=== PATIENT | female | born 2000 | race Caucasian/White ===

== ENCOUNTER 2020-07-20 19:13 | Emergency (ER) | payer OTHER ==
[~2020-07-20] VITALS: Ht 152.4 cm; Wt 54.9 kg
== END 2020-07-20 21:33 | disposition home or self-care (01) ==
LOC: ER 19:13
DX: G44.89 Other headache syndrome (principal); Z03.818 Encounter for observation for suspected exposure to other biological agents ruled out

== ENCOUNTER 2020-09-23 14:44 | Emergency (ER) | payer OTHER ==
[~2020-09-23] VITALS: Ht 152.4 cm; Wt 61.2 kg
[2020-09-23] MEDS ORDERED: ZITHROMAX500 MG PO (19:24)
== END 2020-09-23 19:49 | disposition home or self-care (01) ==
LOC: ER 14:44 → EMR PED 15:06 → ER 15:06 → EMR PED 19:49
DX: U07.1 COVID-19 (principal); B96.0 Mycoplasma pneumoniae [M. pneumoniae] as the cause of diseases classified elsewhere

== ENCOUNTER 2021-03-04 21:24 | Emergency (ER) | payer OTHER ==
[~2021-03-04] VITALS: Ht 152.4 cm; Wt 56.7 kg
[~2021-03-04 21:24] MED LIST: ZITHROMAX500 MG PO
[2021-03-05] MEDS ORDERED: LEVSIN/SL0.125 MG SL (01:36)
[2021-03-05] MEDS ORDERED: INTESTINEX680 M1 PO (01:36)
== END 2021-03-05 01:46 | disposition home or self-care (01) ==
LOC: ER 21:24 → EMR PED 21:47
DX: R19.7 Diarrhea, unspecified (principal); B96.0 Mycoplasma pneumoniae [M. pneumoniae] as the cause of diseases classified elsewhere; Z11.52 Encounter for screening for COVID-19

== ENCOUNTER 2021-03-06 11:00 | Inpatient (IN) | payer OTHER ==
[~2021-03-06 11:00] MED LIST changes: +INTESTINEX680 M1 PO; +LEVSIN/SL0.125 MG SL
--- NOTE | 2021-03-06 11:19 | NUR ---
PTE REFIERE DIARREA CON LORRAINE Y GLORIA DOLOR ABDOMINAL SE [place]ILEY S/V Y SE UBICA EN AREA DE PEDIATRIA
--- NOTE | 2021-03-06 12:37 | NUR ---
EVALUADA PTE. POR DRA. ODONNELL. SE ORIENTA SOBRE TRATAMIENTO Y MEDICAMENTO EL CUAL SE ADM. REG ORDEN MEDICA, MUESTRAS TOMADAS Y SE ENVIAN AL LABORATORIO. SE HACEN AREGLOS PARA SOOGRAMA Y SE LYLY PTE. EN CAMA CON BARRANDAS ELEVADAS ACOMPANADA DE FAMILIAR.
--- NOTE | 2021-03-06 13:33 | NUR ---
MUESTRAS TOMADAS Y SE ENVIAN AL LABORATI\ORIO Y SE ORIENTA A ESTAR NPO.
--- NOTE | 2021-03-06 15:01 | NUR ---
AL MOMENTO DE VIRAJ MEDICAMENTO PTE SE ENCUENTRA EN ESTUDIO
[2021-03-09] MEDS ORDERED: PEPCID20 MG PO (11:52)
[2021-03-09] MEDS ORDERED: PROBIOTIC1 EAC2 PO (11:53)
== END 2021-03-09 12:24 | disposition home or self-care (01) | DRG 641 ==
LOC: EMR PED 11:00 → SEC-K 22:27 → OB/GYN 03-07 00:03
PROVIDERS: ADMIT Pediatrics; ATTEND Pediatrics
PROC: BW40ZZZ Ultrasonography of Abdomen (ICD-10-PCS; principal; 2021-03-06)
PROC: BW2110Z Computerized Tomography (CT Scan) of Abdomen and Pelvis using Low Osmolar Contrast, Unenhanced and Enhanced (ICD-10-PCS; 2021-03-06)
PROC: BW4GZZZ Ultrasonography of Pelvic Region (ICD-10-PCS; 2021-03-06)
DX: E86.0 Dehydration (principal); K92.1 Melena; R19.7 Diarrhea, unspecified; Z20.822 Contact with and (suspected) exposure to COVID-19

== ENCOUNTER 2021-07-04 16:01 | Emergency (ER) | payer OTHER ==
[~2021-07-04] VITALS: Ht 152.4 cm; Wt 54.4 kg
[~2021-07-04 16:01] MED LIST changes: +PEPCID20 MG PO; +PROBIOTIC1 EAC2 PO
[2021-07-04] MEDS ORDERED: CIPRO500 MG PO (19:33)
== END 2021-07-05 | disposition home or self-care (01) ==
LOC: EMR PED 16:01
DX: N39.0 Urinary tract infection, site not specified (principal)

== ENCOUNTER 2022-03-23 20:54 | Emergency (ER) | payer OTHER ==
[~2022-03-23] VITALS: Ht 152.4 cm; Wt 49.9 kg
[~2022-03-23 20:54] MED LIST changes: +CIPRO500 MG PO
[2022-03-24] MEDS ORDERED: INTESTINEX680 M1 PO (02:57)
[2022-03-24] MEDS ORDERED: LEVSIN/SL0.125 MG SL (02:57)
== END 2022-03-24 03:04 ==
LOC: ER 20:54
DX: R19.7 Diarrhea, unspecified (principal); R10.84 Generalized abdominal pain; Z88.0 Allergy status to penicillin

== ENCOUNTER → 2022-11-09 | Emergency (ER) | payer OTHER ==
[~2022-11-09] VITALS: Ht 152.4 cm; Wt 45.4 kg
== END | disposition home or self-care (01) ==
LOC: ER 08:57
DX: N64.4 Mastodynia (principal); Z88.0 Allergy status to penicillin

== ENCOUNTER 2022-12-17 10:16 | Emergency (ER) | payer OTHER ==
[~2022-12-17] VITALS: Ht 152.4 cm; Wt 45.4 kg
== END 2022-12-17 13:20 | disposition home or self-care (01) ==
LOC: ER 10:16
DX: N39.0 Urinary tract infection, site not specified (principal); Z88.0 Allergy status to penicillin

== ENCOUNTER 2022-12-20 10:57 | Outpatient (CLI) | payer OTHER | END 2022-12-20 11:17 | disposition home or self-care (01) | LOC: SONOGRAMA 10:57 | PROVIDERS: ATTEND Surgery | DX: N60.11 Diffuse cystic mastopathy of right breast (principal); N60.12 Diffuse cystic mastopathy of left breast ==

== ENCOUNTER 2023-01-17 18:28 | Emergency (ER) | payer OTHER ==
[~2023-01-17] VITALS: Ht 162.6 cm; Wt 54.4 kg
== END 2023-01-17 22:00 | disposition home or self-care (01) ==
LOC: ER 18:28
DX: K51.90 Ulcerative colitis, unspecified, without complications (principal); Z88.0 Allergy status to penicillin

== ENCOUNTER → 2023-04-25 | Emergency (ER) | payer OTHER ==
[~2023-04-25] VITALS: Ht 152.4 cm; Wt 52.2 kg
[~2023-04-25] MED LIST changes: +PRENATAL + DHA1 EAC1
== END | disposition home or self-care (01) ==
LOC: ER 09:02
DX: O20.9 Hemorrhage in early pregnancy, unspecified (principal); Z3A.11 11 weeks gestation of pregnancy; Z88.0 Allergy status to penicillin

== ENCOUNTER 2023-05-05 19:07 | Emergency (ER) | payer OTHER ==
[~2023-05-05] VITALS: Ht 152.4 cm; Wt 52.2 kg
== END 2023-05-05 22:09 | disposition home or self-care (01) ==
LOC: ER 19:07
DX: O20.8 Other hemorrhage in early pregnancy (principal); Z3A.13 13 weeks gestation of pregnancy; R10.2 Pelvic and perineal pain; Z88.0 Allergy status to penicillin

== ENCOUNTER 2023-05-10 13:34 | Outpatient (CLI) | payer OTHER | END 2023-05-10 14:40 | disposition home or self-care (01) | LOC: PRENATAL 13:34 | PROVIDERS: ATTEND Obstetrics & Gynecology Maternal & Fetal Medicine | DX: O36.80X0 Pregnancy with inconclusive fetal viability, not applicable or unspecified (principal); O43.90 Unspecified placental disorder, unspecified trimester; Z3A.13 13 weeks gestation of pregnancy ==

== ENCOUNTER 2023-07-01 08:11 | Outpatient (CLI) | payer OTHER | END 2023-07-01 16:01 | disposition home or self-care (01) | LOC: PRENATAL 08:11 | PROVIDERS: ATTEND Obstetrics & Gynecology Maternal & Fetal Medicine | DX: O35.3XX0 Maternal care for (suspected) damage to fetus from viral disease in mother, not applicable or unspecified (principal); O44.00 Complete placenta previa NOS or without hemorrhage, unspecified trimester; Z3A.20 20 weeks gestation of pregnancy ==

== ENCOUNTER 2023-09-06 20:42 | Inpatient (IN) | payer OTHER ==
[~2023-09-06] VITALS: Ht 152.4 cm; Wt 64.4 kg
[2023-09-06 21:10] LABS: HEMATOCRIT 32.6 % (36.0-45.00); HEMOGLOBIN 10.9 g/dL (12.0-15.00); MEAN CELL VOLUME 91.1 fL (80.00-100.00); MEAN CORPUSCULAR HEMOGLOBIN 30.5 pg (27.00-32.0); MEAN CORPUSCULAR HGB CONC 33.5 g/dl (32.0-36.0); PH,URINE 7.5 (5.0-8.0); PLATELET COUNT 208 K/uL (150-450); RED BLOOD COUNT 3.58 M/uL (4.00-6.00); RED CELL DISTRIBUTION WIDTH 13.2 % (11.5-14.5); URINE APPEARANCE Clear; URINE BILIRRUBIN Negative (NEGATIVE); URINE BLOOD Negative; URINE COLOR Yellow; URINE GLUCOSE Negative (NEGATIVE); URINE LEUKOCYTE Small; URINE NITRATE Negative; URINE PROTEIN Negative (NEGATIVE); URINE UROBILINOGEN 0.2 E.U./dl
[2023-09-06 21:13] LABS: URINE BACTERIA 2396.2 uL (0.0-1933); URINE EPITHELIAL CELLS 52.7 uL (0.0-38.8); URINE WBC 80.8 uL (0.0-23.2)
[2023-09-06 21:29] LABS: INR 0.98; PARTIAL THROMBOPLASTIN TIME 26.2 SECONDS (22.0-34.0); PROTHROMBIN TIME 10.3 SECONDS (9.0-11.5)
[2023-09-06 21:30] LABS: URINE RBC 0.4 uL (0.0-20.8)
[2023-09-06 21:31] LABS: URINE MUCUS SCANT
[2023-09-06 21:32] LABS: URINE CRYSTALS FEW /HPF
[2023-09-06 21:34] LABS: ALBUMIN 2.7 gm/dL (3.4-5.0); BILIRUBIN TOTAL 0.24 mg/dL (0.3-1.2); CALCIUM 8.6 mg/dL (8.5-10.1); CREATININE SERUM 0.44 mg/dL (0.55-1.02); GFR 178.81; GLOBULINA 3.9 G/DL (2.4-3.5); POTASSIUM 4.38 mEq/L (3.5-5.1); TOTAL PROTEIN 6.6 gm/dL (6.4-8.2)
[2023-09-07] MEDS ORDERED: RHOGAM ULTR1500 UNIT IM (08:56)
== END 2023-09-08 14:22 | disposition home or self-care (01) | DRG 833 ==
LOC: LDR 20:42 → OB/GYN 09-07 15:07
PROVIDERS: ADMIT Student in an Organized Health Care Education/Training Program; ATTEND Student in an Organized Health Care Education/Training Program
PROC: 4A1HXCZ Monitoring of Products of Conception, Cardiac Rate, External Approach (ICD-10-PCS; principal; 2023-09-06)
PROC: BY4FZZZ Ultrasonography of Third Trimester, Single Fetus (ICD-10-PCS; 2023-09-07)
DX: O47.03 False labor before 37 completed weeks of gestation, third trimester (principal); O26.843 Uterine size-date discrepancy, third trimester; O36.8130 Decreased fetal movements, third trimester, not applicable or unspecified; Z3A.30 30 weeks gestation of pregnancy; Z20.822 Contact with and (suspected) exposure to COVID-19

== ENCOUNTER 2023-09-22 14:08 | Outpatient (CLI) | payer OTHER ==
[~2023-09-22 14:08] MED LIST changes: +RHOGAM ULTR1500 UNIT IM
== END 2023-09-22 14:10 | disposition home or self-care (01) ==
LOC: PRENATAL 14:08
PROVIDERS: ATTEND Obstetrics & Gynecology Maternal & Fetal Medicine
DX: O26.849 Uterine size-date discrepancy, unspecified trimester (principal); O36.8199 Decreased fetal movements, unspecified trimester, other fetus; Z3A.32 32 weeks gestation of pregnancy

== ENCOUNTER 2023-09-28 14:29 | Inpatient (IN) | payer OTHER ==
[~2023-09-28] VITALS: Ht 152.4 cm; Wt 2.3 kg
[2023-09-28 16:37] LABS: PH,URINE 6.5 (5.0-8.0); URINE APPEARANCE Clear; URINE BILIRRUBIN Negative (NEGATIVE); URINE BLOOD Negative; URINE COLOR Yellow; URINE GLUCOSE Negative (NEGATIVE); URINE LEUKOCYTE Moderate; URINE NITRATE Negative; URINE PROTEIN Negative (NEGATIVE)
[2023-09-28 16:38] LABS: HEMATOCRIT 29.7 % (36.0-45.00); HEMOGLOBIN 10.2 g/dL (12.0-15.00); MEAN CELL VOLUME 89.6 fL (80.00-100.00); MEAN CORPUSCULAR HEMOGLOBIN 30.8 pg (27.00-32.0); MEAN CORPUSCULAR HGB CONC 34.4 g/dl (32.0-36.0); PLATELET COUNT 247 K/uL (150-450); RED BLOOD COUNT 3.32 M/uL (4.00-6.00); RED CELL DISTRIBUTION WIDTH 14.5 % (11.5-14.5)
[2023-09-28 16:40] LABS: URINE BACTERIA 61.7 uL (0.0-1933); URINE EPITHELIAL CELLS 21.6 uL (0.0-38.8); URINE RBC 38.6 uL (0.0-20.8); URINE WBC 11.9 uL (0.0-23.2)
[2023-09-28 16:58] LABS: ALBUMIN 2.3 gm/dL (3.4-5.0); BILIRUBIN TOTAL 0.26 mg/dL (0.3-1.2); CALCIUM 8.4 mg/dL (8.5-10.1); CREATININE SERUM 0.33 mg/dL (0.55-1.02); GFR 249.2; GLOBULINA 4.2 G/DL (2.4-3.5); POTASSIUM 4.05 mEq/L (3.5-5.1); TOTAL PROTEIN 6.5 gm/dL (6.4-8.2)
[2023-09-28 17:05] LABS: INR 0.97; PARTIAL THROMBOPLASTIN TIME 28.1 SECONDS (22.0-34.0); PROTHROMBIN TIME 10.2 SECONDS (9.0-11.5)
[2023-10-16 20:02] LABS: HEMATOCRIT 32.3 % (36.0-45.00); HEMOGLOBIN 10.8 g/dL (12.0-15.00); MEAN CELL VOLUME 88.6 fL (80.00-100.00); MEAN CORPUSCULAR HEMOGLOBIN 29.5 pg (27.00-32.0); MEAN CORPUSCULAR HGB CONC 33.3 g/dl (32.0-36.0); PLATELET COUNT 185 K/uL (150-450); RED BLOOD COUNT 3.65 M/uL (4.00-6.00); RED CELL DISTRIBUTION WIDTH 15.2 % (11.5-14.5)
[2023-10-20 16:00] LABS: ABG PH 7.198 (7.35-7.45)
[2023-10-20 16:01] LABS: ABG PO2 29.3 mmHg (80-100); ABG pCO2 66.1 mmHg (35-45); BASE EXCESS 4.4 mmol/l; BICARBONATE 25.2 mmol/l (23-25); SaO2 39.6 %; Tco2 26.7 mmol/l
[2023-10-20 16:02] LABS: o2 21 %
[2023-10-20 21:01] LABS: HEMATOCRIT 34.5 % (36.0-45.00); HEMOGLOBIN 11.8 g/dL (12.0-15.00); MEAN CELL VOLUME 87.9 fL (80.00-100.00); MEAN CORPUSCULAR HGB CONC 34.2 g/dl (32.0-36.0); PLATELET COUNT 173 K/uL (150-450); RED BLOOD COUNT 3.93 M/uL (4.00-6.00); RED CELL DISTRIBUTION WIDTH 15.1 % (11.5-14.5)
[2023-10-23] MEDS ORDERED: NAPR500T14 PO (11:31)
[2023-10-23] MEDS ORDERED: Tylenol #3 PO (11:31)
== END 2023-10-23 14:33 | disposition home or self-care (01) | DRG 783 ==
LOC: LDR 14:29 → OB/GYN 14:29
PROVIDERS: Obstetrics & Gynecology; ADMIT Student in an Organized Health Care Education/Training Program; ATTEND Student in an Organized Health Care Education/Training Program
PROC: 4A1HXCZ Monitoring of Products of Conception, Cardiac Rate, External Approach (ICD-10-PCS; 2023-09-28)
PROC: BY4FZZZ Ultrasonography of Third Trimester, Single Fetus (ICD-10-PCS; 2023-09-29)
PROC: BU4CZZZ Ultrasonography of Uterus and Ovaries (ICD-10-PCS; 2023-09-29)
PROC: BY4FZZZ Ultrasonography of Third Trimester, Single Fetus (ICD-10-PCS; 2023-10-07)
PROC: BY4FZZZ Ultrasonography of Third Trimester, Single Fetus (ICD-10-PCS; 2023-10-18)
PROC: 0UB70ZZ Excision of Bilateral Fallopian Tubes, Open Approach (ICD-10-PCS; 2023-10-20)
PROC: 10D00Z1 Extraction of Products of Conception, Low, Open Approach (ICD-10-PCS; principal; 2023-10-20 07:15)
DX: O41.03X0 Oligohydramnios, third trimester, not applicable or unspecified (principal); O60.14X0 Preterm labor third trimester with preterm delivery third trimester, not applicable or unspecified; O34.211 Maternal care for low transverse scar from previous cesarean delivery; O26.843 Uterine size-date discrepancy, third trimester; O36.8130 Decreased fetal movements, third trimester, not applicable or unspecified; Z3A.33 33 weeks gestation of pregnancy; Z37.0 Single live birth; Z20.822 Contact with and (suspected) exposure to COVID-19; Z30.2 Encounter for sterilization